=== PATIENT | male | born 1985 | race Caucasian/White ===

== ENCOUNTER 2016-11-14 16:40 | Emergency (ER) | payer MEDICAID ==
[2016-11-14] MEDS ORDERED: Sodium Chloride 0.9% 10 ML Syringe FLUSH PRN (17:07)
[2016-11-14] MEDS ORDERED: Ondansetron 4 MG/2 ML SDV IVPUSH ONE (17:07)
[2016-11-14] MEDS ORDERED: HYDROmorphone 1 MG/ML Syringe IVPUSH ONE ×2 (17:07→19:04)
[2016-11-14] MEDS ORDERED: Sodium Chloride 0.9% 1,000 ML IV ONE (17:07)
--- NOTE | 2016-11-14 17:14 | EDM.PDOC ---
ED HPI GENERAL MEDICAL PROBLEM - General Chief Complaint: Chest Pain Stated Complaint: CHEST PAIN Time Seen by Provider: 11/14/16 17:00 Source of Information: Reports: Patient History Limitations: Reports: No Limitations - History of Present Illness INITIAL COMMENTS - FREE TEXT/NARRATIVE: 31-year-old male presents for evaluation and treatment of chest pain and shortness of breath. Patient reports that around 8 or 9 this morning he woke from sleep with substernal chest pain that radiated into his right arm. He states that he has tried to lay down throughout the day but the pain has steadily worsened. He states that at its worst it is an 8 out of 10. He states is located in his mid chest and radiates into his back and his right chest. Describes this as an internal pain. No radiation into his neck. States he was coughing earlier. No blood in his sputum. He reports associated symptoms of dizziness, diaphoresis and nausea. He denies any syncope or vomiting. He also reports some abdominal pain in the right upper abdomen. He describes this as a mild pain. Reports pain in his legs but states she always has pain in his legs. Patient is currently on Coumadin and has an IVC filter in place. He reports he was supposed the IVC filter on July. He had this placed after having a PE in February 2015. This was treated at [facility] in [place]. He reports he has been taking his Coumadin as prescribed. He is unaware of any coagulation disorders such as protein C or protein S deficiency. States his symptoms today feel similar to when he had the PE. Reports he smokes about 1 cigarette a day. This is down from 1-2 packs a day. Reports he has substantially decreased his smoking since having a PE. No recent long car rides or airplane rides. Mid-Sternal Chest Pain Score (Numeric/FACES): 7 - Related Data Allergies Allergy/AdvReac Type Severity Reaction Status Date / Time diphenhydramine Allergy Rash Verified 02/27/16 18:51 [From Benadryl] ketorolac [From Toradol] Allergy Anxiety Verified 02/27/16 18:51 Home Meds: Home Meds Divalproex Sodium [Depakote] 250 mg PO TID 02/27/16 [History] Divalproex Sodium [Depakote] 500 mg PO TID 02/27/16 [History] FLUoxetine [PROzac] 3 tab PO DAILY 02/27/16 [History] Furosemide [Lasix] 20 mg PO DAILY 02/27/16 [History] Gabapentin [Neurontin] 600 mg PO QID 02/27/16 [History] LORazepam [Ativan] 1 mg PO TID #18 tablet 02/27/16 [Rx] Ondansetron [Zofran ODT] 4 mg PO Q4H PRN 02/27/16 [History] Pantoprazole [Protonix] 40 mg PO ACBREAKFAST 02/27/16 [History] Prazosin HCl [Prazosin] 2 mg PO BEDTIME 02/27/16 [History] Prazosin [Minpress] 1 mg PO BEDTIME 02/27/16 [History] QUEtiapine [SEROquel] 150 mg PO BEDTIME 02/27/16 [History] Warfarin [Coumadin] 7.5 mg PO DAILY 02/27/16 [History] cloNIDine [Catapres] 0.1 mg PO DAILY #10 tablet 02/27/16 [Rx] hydrOXYzine Pamoate [Hydroxyzine Pamoate] 1 tab PO QID PRN 02/27/16 [History] traZODone 50 mg PO BEDTIME 02/27/16 [History] Amitriptyline HCl 150 mg PO BEDTIME 11/14/16 [History] Divalproex Sodium [Depakote] 500 mg PO BEDTIME 11/14/16 [History] FLUoxetine [PROzac] 3 tab PO DAILY 11/14/16 [History] Nicotine [Nicotine Patch] 1 patch TD DAILY 11/14/16 [History] Pantoprazole Sodium [Protonix] 40 mg PO DAILY 11/14/16 [History] Prazosin HCl [Prazosin] 5 mg PO BEDTIME 11/14/16 [History] Topiramate [Topamax] 100 mg PO BEDTIME 11/14/16 [History] Warfarin [Coumadin] 5 mg PO DAILY 11/14/16 [History] traMADol [Ultram] 50 mg PO ONETIME #3 tablet 11/14/16 [Rx] Past Medical History Respiratory History: Reports: PE Gastrointestinal History: Reports: GERD Psychiatric History: Reports: Anxiety, Depression, PTSD - Past Surgical History Respiratory Surgical History: Reports: Pulmonary Vein Stent GI Surgical History: Reports: Cholecystectomy Social & Family History - Tobacco Use Smoking Status *Q: Current Every Day Smoker Years of Tobacco use: 5 Packs/Tins Daily: 0.3 - Caffeine Use Caffeine Use: Reports: Coffee - Recreational Drug Use Recreational Drug Use: Yes Drug Use in Last 12 Months: No ED ROS GENERAL - Review of Systems Review Of Systems: See Below Constitutional: Reports: Malaise, Diaphoresis Respiratory: Reports: Shortness of Breath, Cough. Denies: Hemoptysis Cardiovascular: Reports: Chest Pain (radiates to back and right arm) GI/Abdominal: Reports: Abdominal Pain ("slight"), Nausea. Denies: Vomiting Musculoskeletal: Reports: Back Pain Neurological: Reports: Dizziness. Denies: Syncope ED EXAM, GENERAL - Physical Exam Exam: See Below Exam Limited By: No Limitations General Appearance: Alert, WD/WN, Anxious, Mild Distress, Obese Throat/Mouth: Normal Inspection, Normal Voice, No Airway Compromise Respiratory/Chest: No Respiratory Distress, Lungs Clear, Normal Breath Sounds Cardiovascular: Normal Peripheral Pulses, No Murmur, Tachycardia Peripheral Pulses: 2+: Radial (L), Radial (R) GI/Abdominal: Normal Bowel Sounds, Soft, Non-Tender Extremities: Normal Inspection Neurological: Alert, Oriented, Normal Cognition Psychiatric: Normal Affect, Normal Mood Skin Exam: Cool, Diaphoretic EKG INTERPRETATION EKG Date: 11/14/16 Time: 16:50 Rhythm: NSR Rate (Beats/Min): 105 Stevenson: Normal P-Wave: Present QRS: Normal ST-T: Normal QT: Normal Comparison: NA - No Prior EKG EKG Interpretation Comments: Sinus tachycardia at 105 bpm. No acute changes. Reviewed by myself and Dr. Eddy. Course - Vital Signs Last Recorded V/S: Last Vital Signs Temp 36.4 C 11/14/16 16:47 Pulse 100 11/14/16 21:38 Resp 20 11/14/16 21:38 BP 129/72 11/14/16 21:38 Pulse Ox 97 11/14/16 21:38 - Orders/Labs/Meds Labs: Laboratory Tests 11/14/16 11/14/16 11/14/16 Range/Units 18:25 18:25 18:25 WBC 8.55 (4.23-9.07) K/mm3 RBC 4.74 (4.63-6.08) M/mm3 Hgb 13.5 L (13.7-17.5) gm/L Hct 41.5 (40.1-51.0) % MCV 87.6 (79.0-92.2) fl MCH 28.5 (25.7-32.2) pg MCHC 32.5 (32.2-35.5) g/dl RDW Std Deviation 46.2 H (35.1-43.9) fL Plt Count 216 (163-337) K/mm3 MPV 11.7 (9.4-12.3) fl Neutrophils % (Manual) 55 (40-60) % Band Neutrophils % 0 (0-10) % Lymphocytes % (Manual) 33 (20-40) % Atypical Lymphs % 0 % Monocytes % (Manual) 4 (2-10) % Eosinophils % (Manual) 4 (0.8-7.0) % Basophils % (Manual) 4 H (0.2-1.2) Platelet Estimate Adequate RBC Morph Comment Normal PT 24.4 H (8.0-13.0) SECONDS INR 2.13 APTT 35 (22-36) SECONDS D-Dimer, Quantitative 0.65 H (0.19-0.59) mg/L Sodium 139 (136-145) mEq/L Potassium 4.2 (3.5-5.1) mEq/L Chloride 106 (98-107) mEq/L Carbon Dioxide 22 (21-32) mEq/L Anion Gap 15.2 H (5-15) BUN 23 H (7-18) mg/dL Creatinine 1.1 (0.7-1.3) mg/dL Est Cr Clr Drug Dosing 104.84 mL/min Estimated GFR (MDRD) > 60 (>60) mL/min BUN/Creatinine Ratio 20.9 H (14-18) Glucose 87 (74-106) mg/dL Calcium 8.5 (8.5-10.1) mg/dL Total Bilirubin 0.2 (0.2-1.0) mg/dL AST 19 (15-37) U/L ALT 43 (16-63) U/L Alkaline Phosphatase 104 (46-116) U/L CK-MB (CK-2) 0.5 (0-3.6) ng/ml Troponin I < 0.017 (0.00-0.056) ng/mL C-Reactive Protein < 0.2 (<1.0) mg/dL Total Protein 7.3 (6.4-8.2) g/dl Albumin 3.5 (3.4-5.0) g/dl Globulin 3.8 gm/dL Albumin/Globulin Ratio 0.9 L (1-2) Lipase 148 (73-393) U/L Urine Opiates Screen (NEGATIVE) Ur Buprenorphine Scrn (NEGATIVE) Ur Oxycodone Screen (NEGATIVE) Urine Methadone Screen (NEGATIVE) Ur Propoxyphene Screen (NEGATIVE) Ur Barbiturates Screen (NEGATIVE) Ur Tricyclics Screen (NEGATIVE) Ur Phencyclidine Scrn (NEGATIVE) Ur Amphetamine Screen (NEGATIVE) U Methamphetamines Scrn (NEGATIVE) U Benzodiazepines Scrn (NEGATIVE) U Cocaine Metab Screen (NEGATIVE) U Marijuana (THC) Screen (NEGATIVE) Ethyl Alcohol 0.00 (0.00) gm% 11/14/16 Range/Units 20:45 WBC (4.23-9.07) K/mm3 RBC (4.63-6.08) M/mm3 Hgb (13.7-17.5) gm/L Hct (40.1-51.0) % MCV (79.0-92.2) fl MCH (25.7-32.2) pg MCHC (32.2-35.5) g/dl RDW Std Deviation (35.1-43.9) fL Plt Count (163-337) K/mm3 MPV (9.4-12.3) fl Neutrophils % (Manual) (40-60) % Band Neutrophils % (0-10) % Lymphocytes % (Manual) (20-40) % Atypical Lymphs % % Monocytes % (Manual) (2-10) % Eosinophils % (Manual) (0.8-7.0) % Basophils % (Manual) (0.2-1.2) Platelet Estimate RBC Morph Comment PT (8.0-13.0) SECONDS INR APTT (22-36) SECONDS D-Dimer, Quantitative (0.19-0.59) mg/L Sodium (136-145) mEq/L Potassium (3.5-5.1) mEq/L Chloride (98-107) mEq/L Carbon Dioxide (21-32) mEq/L Anion Gap (5-15) BUN (7-18) mg/dL Creatinine (0.7-1.3) mg/dL Est Cr Clr Drug Dosing mL/min Estimated GFR (MDRD) (>60) mL/min BUN/Creatinine Ratio (14-18) Glucose (74-106) mg/dL Calcium (8.5-10.1) mg/dL Total Bilirubin (0.2-1.0) mg/dL AST (15-37) U/L ALT (16-63) U/L Alkaline Phosphatase (46-116) U/L CK-MB (CK-2) (0-3.6) ng/ml Troponin I (0.00-0.056) ng/mL C-Reactive Protein (<1.0) mg/dL Total Protein (6.4-8.2) g/dl Albumin (3.4-5.0) g/dl Globulin gm/dL Albumin/Globulin Ratio (1-2) Lipase (73-393) U/L Urine Opiates Screen Presumptive positive H (NEGATIVE) Ur Buprenorphine Scrn Negative (NEGATIVE) Ur Oxycodone Screen Negative (NEGATIVE) Urine Methadone Screen Negative (NEGATIVE) Ur Propoxyphene Screen Negative (NEGATIVE) Ur Barbiturates Screen Negative (NEGATIVE) Ur Tricyclics Screen Presumptive positive H (NEGATIVE) Ur Phencyclidine Scrn Negative (NEGATIVE) Ur Amphetamine Screen Negative (NEGATIVE) U Methamphetamines Scrn Negative (NEGATIVE) U Benzodiazepines Scrn Presumptive positive H (NEGATIVE) U Cocaine Metab Screen Negative (NEGATIVE) U Marijuana (THC) Screen Negative (NEGATIVE) Ethyl Alcohol (0.00) gm% Meds: Medications Discontinued Medications Generic Name Dose Route Start Last Admin Trade Name Freq PRN Reason Stop Dose Admin Hydromorphone HCl 1 mg 11/14/16 17:07 11/14/16 18:11 Dilaudid IVPUSH 11/14/16 17:08 1 mg ONETIME ONE Administration Hydromorphone HCl 1 mg 11/14/16 19:04 11/14/16 19:14 Dilaudid IVPUSH 11/14/16 19:05 1 mg ONETIME ONE Administration Sodium Chloride 1,000 mls @ 100 mls/hr 11/14/16 17:07 11/14/16 18:09 Normal Saline IV 11/15/16 03:06 100 mls/hr ONETIME ONE Administration Sodium Chloride 100 mls @ 60 mls/hr 11/14/16 18:00 11/14/16 18:05 Normal Saline IV 60 mls/hr ASDIRECTED MARYCARMEN Administration Iopamidol 100 ml 11/14/16 17:46 11/14/16 18:05 Isovue-370 (76%) IVPUSH 11/14/16 17:47 100 ml ONETIME ONE Administration Iopamidol 50 ml 11/14/16 17:46 11/14/16 18:05 Isovue-370 (76%) IVPUSH 11/14/16 17:47 50 ml ONETIME ONE Administration Lorazepam 1 mg 11/14/16 20:22 11/14/16 20:33 Ativan IVPUSH 11/14/16 20:23 1 mg ONETIME ONE Administration Ondansetron HCl 4 mg 11/14/16 17:07 11/14/16 18:10 Zofran IVPUSH 11/14/16 17:08 4 mg ONETIME ONE Administration Sodium Chloride 10 ml 11/14/16 17:07 11/14/16 18:12 Saline Flush FLUSH 10 ml ASDIRECTED PRN Administration Keep Vein Open Sodium Chloride 10 ml 11/14/16 17:46 11/14/16 18:05 Saline Flush FLUSH 11/14/16 17:47 10 ml ONETIME ONE Administration Tramadol HCl Confirm 11/14/16 21:30 Ultram Administered 11/14/16 21:31 Dose 150 mg .ROUTE .[facility] ONE - Radiology Interpretation Free Text/Narrative:: CT pulmonary angiogram impression per Viread no pulmonary embolus. Normal chest CTA. CT of the abdomen and pelvis with IV contrast 1. IVC filter in place. 2. Enlarged liver with no focal liver mass. 3. No acute abnormality in the abdomen or pelvis. CT Results Date: 11/14/16 - Re-Assessments/Exams Free Text/Narrative Re-Assessment/Exam: 11/14/16 17:21 Dilaudid ordered for pain. Allergies to benadryl and toradol. Plan to CT the chest, abdomen and pelvis to rule out PE, IVC migration, dissection, aneurism. 11/14/16 19:04 reports worsening pain. Ordered additional 1mg IV dilaudid. Awaiting CT report and remaining labs. drug screen and etoh added onto labs. Patient reports he is living at the [facility]. He is elusive about this and would not further elaborate. 11/14/16 20:22 Labs returned. wbc is 8.55, hgb is 13.5 and plts are 216 sodium is 139, potassium is 4.2, chloride is 106. anion gap is 15.2. creatinine is 1.1. gluclose is 87. d dimer is slightly elevated at 0.65 trop is within nomrmal limits at <0.017 CKMB is within normal limits at 0.5 CRP is within normal limits at <0.2 lipase is within normal limits at 148 PT is 24.4, INR is 2.13 PTT is 35 alcohol is 0 drug screen is + for opiates, benzos and tricyclics. I reviewed the labs, ekg, and imaging with the patient. Possibilities for chest pain include anxiety, reflux, costoconditis. I ordered ativan IV for anxiety. I believe his anxiety is likely the cause of the tachycardia. Plan will be to discharge home. He is requesting something for pain and to help with sleep. I searched him on the [place] drug registry. I will prescribe him a few tramadol. He has taken these safely in the past. 10 prescriptions from 5 prescibers for controlled substances within the last year. All RX either clonazepam or tramadol. Last clonazepam RX 11-04-16 0.5mg tabs #12. Last tramadol 50mg tabs 16 #180 Discharge instructions as documented. 11/14/16 21:49 Ciales improved after ativan. Informed nursing staff he has an "allergy" to tramadol. States it makes him uneasy. Given the etiology for his pain tonight was not definitively identified , however multiple serious causes of chest pain were ruled out, I do not feel he should require anything stronger for pain tonight. He was made aware of this and decided to take the tramadol prescription anyways. Will discharge home. Departure - Departure Time of Disposition: 21:17 Disposition: Home, Self-Care 01 Condition: Good Clinical Impression: Atypical chest pain Prescriptions: traMADol [Ultram] 50 mg PO ONETIME #3 tablet Instructions: Nonspecific Chest Pain Referrals: Ev Bradley MD [Primary Care Provider] - Forms: ED Department Discharge Additional Instructions: Go home and rest. Follow up with your family practice provider this week. If you need one in [place], recommend Dr. Bhatt. Please call [phone] Bhatt. Tramadol 1 tab at hour sleep for pain. Please return to the ER if your symptoms change or worsen.
[2016-11-14] MEDS ORDERED: Sodium Chloride 0.9% 10 ML Syringe FLUSH ONE (17:46)
[2016-11-14] MEDS ORDERED: Iopamidol 755 MG/ML 50 ML Bottle IVPUSH ONE (17:46)
[2016-11-14] MEDS ORDERED: Iopamidol 755 Mg/ML 100 ML Bottle IVPUSH ONE (17:46)
[2016-11-14] MEDS ORDERED: Sodium Chloride 0.9% 100 ML IV SCH (18:00)
[2016-11-14] MEDS ORDERED: LORazepam 2 MG/ML MDV IVPUSH ONE (20:22)
[2016-11-14] MEDS ORDERED: traMADol 50 MG Tab ONE (21:30)
[2016-11-14 23:08] VITALS: BP 129/72
--- NOTE | 2016-11-15 07:09 | CT ---
CT chest Technique: Multiple axial sections were obtained from above the lung apices inferiorly through the lung bases. Intravenous contrast was utilized. Findings: Aorta shows no aneurysmal dilatation. No dissection is seen. Visualized portions of the pulmonary artery show no findings of pulmonary embolism. Mediastinum and hilar regions show no adenopathy or mass. No pericardial effusions are seen. Lungs are clear. No pleural effusions are identified. Bone window settings were reviewed which appear within normal limits for the patient's age. Impression: 1. Nothing acute is appreciated on CT study of the chest. Diagnostic code #1 I agree with preliminary report issued by [facility] ([facility] report finalized on 11/14/16, 7:45 PM Central Time) CT abdomen and pelvis Technique: Multiple axial sections were obtained from above the dome of the diaphragm inferiorly through the pubic symphysis. Intravenous contrast was utilized. No oral contrast has been given. Delayed images were also obtained through the bladder. Findings: Liver shows no focal parenchymal abnormality. Spleen appears within normal limits. Surgical clips are identified from prior cholecystectomy. Adrenal glands show no nodule. Minimal cyst noted within the mid right kidney measuring 4 mm. Kidneys otherwise appear normal. Inferior vena cava filter is seen. Pancreas appears within normal limits. Aortic arch appears unremarkable. No retroperitoneal adenopathy or mesenteric abnormalities are seen. Appendix is seen and appears normal. Delayed images show contrast within the bladder. Bone window settings were reviewed which appear within normal limits for the patient's age. Impression: 1. Inferior vena cava filter noted. 2. No acute abnormality identified on CT study of the abdomen and pelvis. Diagnostic code #2 I agree with preliminary report issued by [facility] ([facility] report finalized on 11/14/16, 7:45 PM Central Time)
== END 2016-11-14 21:39 | disposition home or self-care (01) ==
LOC: JD.ED 16:40 → MERGE 16:40 → JD.ED 21:39
DX: R07.89 Other chest pain (principal); K21.9 Gastro-esophageal reflux disease without esophagitis; F41.9 Anxiety disorder, unspecified; F32.9 Major depressive disorder, single episode, unspecified; F17.210 Nicotine dependence, cigarettes, uncomplicated; Z79.01 Long term (current) use of anticoagulants; Z79.899 Other long term (current) drug therapy; Z88.6 Allergy status to analgesic agent; Z88.8 Allergy status to other drugs, medicaments and biological substances
CPT/HCPCS: 36415; 71260; 74177; 80053; 80306; 82553; 83690; 84484; 85025; 85379; 85610; 85730; 86140; 93005; 96361; 96374; 96375; 99284; G0480; J1170; J2060; J2405; J7030; J7040; J7050; Q9967

== ENCOUNTER 2016-11-23 16:50 | Emergency (ER) | payer MEDICAID ==
[2016-11-23 17:03] VITALS: BP 141/83
[2016-11-23] MEDS ORDERED: Sodium Chloride 0.9% 10 ML Syringe FLUSH PRN ×2 (17:25→20:54)
[2016-11-23] MEDS ORDERED: LORazepam 2 MG/ML MDV IVPUSH ONE (17:27)
--- NOTE | 2016-11-23 17:32 | EDM.PDOC ---
ED HPI GENERAL MEDICAL PROBLEM - General Chief Complaint: Cardiovascular Problem Stated Complaint: BOTH LEGS SWOLLEN Time Seen by Provider: 11/23/16 17:11 Source of Information: Reports: Patient History Limitations: Reports: No Limitations - History of Present Illness INITIAL COMMENTS - FREE TEXT/NARRATIVE: Patient is a 31-year-old male with a history of DVT/PE, inferior vena cava filter, and currently on Coumadin who presents to the ED complaining of swelling to his left lower leg with pain. Patient has chest pain chronically with worsening symptoms today along with some shortness of breath. Patient is a resident of our [facility] for the past 2 weeks. During therapy with other members there was an argument and the patient got upset. Patient has been sober from alcohol for 9 months. States the filter was supposed to be removed in [place] this past July but due to financial reasons he was unable to get there. Patient is concerned he has a DVT. Again chest pain is chronic but has worsened with being agitated. Unknown what his last INR was. He continues take Coumadin on a regular basis. He is on multiple medications for multiple psychiatric illnesses. He's taken all his home medications as prescribed. Denies any nausea/ vomiting, fever/chills, abdominal pain, dysuria, numbness or tingling, presyncopal/syncopal episodes, dizziness, or any additional complaints. Left Leg Pain Score (Numeric/FACES): 7 Chest Pain Score (Numeric/FACES): 6 - Related Data Allergies Allergy/AdvReac Type Severity Reaction Status Date / Time diphenhydramine Allergy Rash Verified 11/23/16 17:03 [From Benadryl] ketorolac [From Toradol] Allergy Anxiety Verified 11/23/16 17:03 Home Meds: Home Meds Divalproex Sodium [Depakote] 250 mg PO TID 02/27/16 [History] Divalproex Sodium [Depakote] 500 mg PO TID 02/27/16 [History] FLUoxetine [PROzac] 3 tab PO DAILY 02/27/16 [History] Furosemide [Lasix] 20 mg PO DAILY 02/27/16 [History] Gabapentin [Neurontin] 600 mg PO QID 02/27/16 [History] LORazepam [Ativan] 1 mg PO TID #18 tablet 02/27/16 [Rx] Ondansetron [Zofran ODT] 4 mg PO Q4H PRN 02/27/16 [History] Pantoprazole [Protonix] 40 mg PO ACBREAKFAST 02/27/16 [History] Prazosin HCl [Prazosin] 2 mg PO BEDTIME 02/27/16 [History] Prazosin [Minpress] 1 mg PO BEDTIME 02/27/16 [History] QUEtiapine [SEROquel] 150 mg PO BEDTIME 02/27/16 [History] Warfarin [Coumadin] 7.5 mg PO DAILY 02/27/16 [History] cloNIDine [Catapres] 0.1 mg PO DAILY #10 tablet 02/27/16 [Rx] hydrOXYzine Pamoate [Hydroxyzine Pamoate] 1 tab PO QID PRN 02/27/16 [History] traZODone 50 mg PO BEDTIME 02/27/16 [History] Amitriptyline HCl 150 mg PO BEDTIME 11/14/16 [History] Divalproex Sodium [Depakote] 500 mg PO BEDTIME 11/14/16 [History] FLUoxetine [PROzac] 3 tab PO DAILY 11/14/16 [History] Nicotine [Nicotine Patch] 1 patch TD DAILY 11/14/16 [History] Pantoprazole Sodium [Protonix] 40 mg PO DAILY 11/14/16 [History] Prazosin HCl [Prazosin] 5 mg PO BEDTIME 11/14/16 [History] Topiramate [Topamax] 100 mg PO BEDTIME 11/14/16 [History] Warfarin [Coumadin] 5 mg PO DAILY 11/14/16 [History] traMADol [Ultram] 50 mg PO ONETIME #3 tablet 11/14/16 [Rx] Acetaminophen/HYDROcodone [[place] 325-5 MG] 1 tab PO Q6H PRN #8 tablet 11/23/16 [ Rx] Cephalexin [Keflex] 500 mg PO Q6HR #40 cap 11/23/16 [Rx] Past Medical History HEENT History: Reports: Impaired Vision Other HEENT History: wears corrective lenses Cardiovascular History: Reports: Blood Clots/VTE/DVT Respiratory History: Reports: PE, Other (See Below) Other Respiratory History: CVT filter in rightlung Gastrointestinal History: Reports: GERD Neurological History: Reports: Seizure, Other (See Below) Other Neuro History: currently off seizure medications Psychiatric History: Reports: Addiction, ADD, Anxiety, Depression, PTSD Hematologic History: Reports: Anticoagulation Therapy - Past Surgical History HEENT Surgical History: Reports: Oral Surgery Respiratory Surgical History: Reports: Pulmonary Vein Stent GI Surgical History: Reports: Cholecystectomy Neurological Surgical History: Reports: None Social & Family History - Tobacco Use Smoking Status *Q: Former Smoker Years of Tobacco use: 5 Packs/Tins Daily: 0.3 Used Tobacco, but Quit: Yes Month Tobacco Last Used: 1 Second Hand Smoke Exposure: No - Caffeine Use Caffeine Use: Reports: Energy Drinks - Recreational Drug Use Recreational Drug Use: No Drug Use in Last 12 Months: No ED ROS GENERAL - Review of Systems Review Of Systems: ROS reveals no pertinent complaints other than HPI. ED EXAM, GENERAL - Physical Exam Exam: See Below Exam Limited By: No Limitations General Appearance: Alert, WD/WN, Anxious Ears: Hearing Grossly Normal Nose: Normal Inspection Throat/Mouth: Normal Voice, No Airway Compromise Neck: Normal Inspection, Supple, Non-Tender, Full Range of Motion. No: Lymphadenopathy (L), Lymphadenopathy (R) Respiratory/Chest: No Respiratory Distress, Lungs Clear, Normal Breath Sounds, No Accessory Muscle Use, Chest Non-Tender Cardiovascular: Normal Peripheral Pulses, No JVD, No Murmur, Tachycardia Peripheral Pulses: 2+: Radial (L), Radial (R), Posterior Tibial (L), Posterior Tibial (R) GI/Abdominal: Normal Bowel Sounds, Soft, Non-Tender, No Organomegaly, No Distention Back Exam: Normal Inspection Extremities: Other (Swelling noted to the left calf with mild increase in redness noted. Pain with palpation along the inferior border of the calf. Multiple superficial abrasions.) Neurological: Alert, Oriented, CN II-XII Intact, Normal Cognition, No Motor/ Sensory Deficits Psychiatric: Normal Affect, Normal Mood Skin Exam: Warm, Dry, Intact, Normal Color, No Rash Course - Vital Signs Last Recorded V/S: Last Vital Signs Temp 97.3 F 11/23/16 16:59 Pulse 103 H 11/23/16 16:59 Resp 19 11/23/16 16:59 BP 141/83 H 11/23/16 16:59 Pulse Ox 97 11/23/16 16:59 - Orders/Labs/Meds Labs: Laboratory Tests 07/31/17 07/31/17 07/31/17 Range/Units 17:10 17:10 17:10 WBC 9.36 H (4.23-9.07) K/mm3 RBC 4.22 L (4.63-6.08) M/mm3 Hgb 12.1 L (13.7-17.5) gm/L Hct 37.1 L (40.1-51.0) % MCV 87.9 (79.0-92.2) fl MCH 28.7 (25.7-32.2) pg MCHC 32.6 (32.2-35.5) g/dl RDW Std Deviation 47.1 H (35.1-43.9) fL Plt Count 221 (163-337) K/mm3 MPV 12.1 (9.4-12.3) fl Neut % (Auto) 66.3 (34.0-67.9) % Lymph % (Auto) 23.4 (21.8-53.1) % Victoria % (Auto) 6.5 (5.3-12.2) % Eos % (Auto) 3.3 (0.8-7.0) Baso % (Auto) 0.3 (0.1-1.2) % Neut # (Auto) 6.20 H (1.78-5.38) K/mm3 Lymph # (Auto) 2.19 (1.32-3.57) K/mm3 Victoria # (Auto) 0.61 (0.30-0.82) K/mm3 Eos # (Auto) 0.31 (0.04-0.54) K/mm3 Baso # (Auto) 0.03 (0.01-0.08) K/mm3 PT 26.3 H (8.0-13.0) SECONDS INR 2.29 Sodium 142 (136-145) mEq/L Potassium 3.2 L (3.5-5.1) mEq/L Chloride 107 (98-107) mEq/L Carbon Dioxide 23 (21-32) mEq/L Anion Gap 15.2 H (5-15) BUN 18 (7-18) mg/dL Creatinine 1.4 H (0.7-1.3) mg/dL Est Cr Clr Drug Dosing 82.49 mL/min Estimated GFR (MDRD) 58 (>60) mL/min BUN/Creatinine Ratio 12.9 L (14-18) Glucose 109 H (74-106) mg/dL Calcium 9.2 (8.5-10.1) mg/dL Total Bilirubin 0.3 (0.2-1.0) mg/dL AST 41 H (15-37) U/L ALT 51 (16-63) U/L Alkaline Phosphatase 97 (46-116) U/L Troponin I (0.00-0.056) ng/mL Total Protein 7.2 (6.4-8.2) g/dl Albumin 3.8 (3.4-5.0) g/dl Globulin 3.4 gm/dL Albumin/Globulin Ratio 1.1 (1-2) 11/23/16 Range/Units 20:55 WBC (4.23-9.07) K/mm3 RBC (4.63-6.08) M/mm3 Hgb (13.7-17.5) gm/L Hct (40.1-51.0) % MCV (79.0-92.2) fl MCH (25.7-32.2) pg MCHC (32.2-35.5) g/dl RDW Std Deviation (35.1-43.9) fL Plt Count (163-337) K/mm3 MPV (9.4-12.3) fl Neut % (Auto) (34.0-67.9) % Lymph % (Auto) (21.8-53.1) % Victoria % (Auto) (5.3-12.2) % Eos % (Auto) (0.8-7.0) Baso % (Auto) (0.1-1.2) % Neut # (Auto) (1.78-5.38) K/mm3 Lymph # (Auto) (1.32-3.57) K/mm3 Victoria # (Auto) (0.30-0.82) K/mm3 Eos # (Auto) (0.04-0.54) K/mm3 Baso # (Auto) (0.01-0.08) K/mm3 PT (8.0-13.0) SECONDS INR Sodium (136-145) mEq/L Potassium (3.5-5.1) mEq/L Chloride (98-107) mEq/L Carbon Dioxide (21-32) mEq/L Anion Gap (5-15) BUN (7-18) mg/dL Creatinine (0.7-1.3) mg/dL Est Cr Clr Drug Dosing mL/min Estimated GFR (MDRD) (>60) mL/min BUN/Creatinine Ratio (14-18) Glucose (74-106) mg/dL Calcium (8.5-10.1) mg/dL Total Bilirubin (0.2-1.0) mg/dL AST (15-37) U/L ALT (16-63) U/L Alkaline Phosphatase (46-116) U/L Troponin I < 0.017 (0.00-0.056) ng/mL Total Protein (6.4-8.2) g/dl Albumin (3.4-5.0) g/dl Globulin gm/dL Albumin/Globulin Ratio (1-2) Meds: Medications Discontinued Medications Generic Name Dose Route Start Last Admin Trade Name Freq PRN Reason Stop Dose Admin Cephalexin 500 mg 11/23/16 22:00 11/23/16 22:38 Keflex PO 11/23/16 22:01 500 mg ONETIME ONE Administration Hydromorphone HCl 1 mg 11/23/16 18:41 11/23/16 18:49 Dilaudid IVPUSH 11/23/16 18:42 1 mg ONETIME ONE Administration Hydromorphone HCl 0.25 mg 11/23/16 21:46 11/23/16 21:53 Dilaudid IVPUSH 11/23/16 21:47 0.25 mg ONETIME ONE Administration Sodium Chloride 1,000 mls @ 999 mls/hr 11/23/16 20:00 11/23/16 20:11 Normal Saline IV 999 mls/hr ASDIRECTED MARYCARMEN Administration Sodium Chloride 100 mls @ 65 mls/hr 11/23/16 21:00 Normal Saline IV ASDIRECTED MARYCARMEN Iopamidol 100 ml 11/23/16 20:54 Isovue-370 (76%) IVPUSH 11/23/16 20:55 ONETIME ONE Iopamidol 50 ml 11/23/16 20:54 Isovue-370 (76%) IVPUSH 11/23/16 20:55 ONETIME ONE Lorazepam 1 mg 11/23/16 17:27 11/23/16 17:45 Ativan IVPUSH 11/23/16 17:28 1 mg ONETIME ONE Administration Sodium Chloride 10 ml 11/23/16 17:25 11/23/16 17:45 Saline Flush FLUSH 10 ml ASDIRECTED PRN Administration Keep Vein Open Sodium Chloride 10 ml 11/23/16 20:54 Saline Flush FLUSH ONETIME PRN IV FLUSH - Re-Assessments/Exams Free Text/Narrative Re-Assessment/Exam: Peripheral IV ordered with Ativan 1 mg IVP. Patient is quite anxious. Initial labs and studies include CBC, chem 14, PTT/INR, EKG, chest x-ray one view, and VL duplex of left lower leg. Will hold off on obtaining CTA of the chest until INR results and VL duplex are back. EKG revealed: Sinus tachycardia with a rate of 102 with conduction delay. Abnormal EKG. No acute ST changes noted. Negative S1 Q3 T3. Chest x-ray revealed: No acute findings. Reviewed with Dr. Rosado. Final interpretation pending. Labs reveal:Labs reviewed: White blood cell count 9.36, hemoglobin 12.1, no neutrophilia present. INR 2.29 which is therapeutic. Sodium 142, potassium 3.2, creatinine 1.4, and glucose 109. Ultrasound revealed: Partially occluding thrombus in the superficial femoral vein inferiorly through the deep veins of the left lower extremity. Most of the clot appears to be chronic but I do believe that there is a mild amount of acute thrombus present. Subcutaneous edema is seen within the left lower extremity. 11/23/16 18:41 Patient complaining of chest pain. Anxiety level has not subsided with Ativan. Ordered Dilaudid 1 mg IVP. 11/23/16 20:07 Creatinine is 1.4. Ordered and is 999 ml/hr. Due to findings on ultrasound of acute thrombus present. Will order CT of the chest PE protocol. Discussed this with Dr. Mills he agrees but also suggest obtaining CT the abdomen to delineate location of IVC filter. It was neisha our attention CT of the chest, abdomen, and pelvis obtained November 14, 2016 indicated inferior vena cava filter noted. No acute abnormality identified on CT study of the abdomen and pelvis. Nothing acute is appreciated on CT study of the chest. Patient did not inform he was seen in the E.D. this date. CT of the abdomen and pelvis cancelled. 11/23/16 21:53 CT the chest per PE protocol impression: Patchy areas of groundglass opacification and the right and left upper lobes and lesser to the extent the right lower lobe. Findings could suggest pneumonitis. No evidence of pulmonary embolus. Mild cardiomegaly. Incidental/nonacute findings are described above. 11/23/16 22:02 Ordered Keflex 500 mg by mouth. Patient has some small superficial abrasions to the left ankle may be early onset of cellulitis. Will discharge patient home with instructions as documented. Departure - Departure Time of Disposition: 22:03 Disposition: Home, Self-Care 01 Condition: Good Clinical Impression: DVT of axillary vein, acute left, DVT of axillary vein, chronic left Lower leg abrasion Qualifiers: Encounter type: initial encounter Laterality: left Qualified Code(s): S80.812A - Abrasion, left lower leg, initial encounter Prescriptions: Cephalexin [Keflex] 500 mg PO Q6HR #40 cap Acetaminophen/HYDROcodone [[place] 325-5 MG] 1 tab PO Q6H PRN #8 tablet PRN Reason: Pain (Severe 7-10) Instructions: Abrasion, [id number], Deep Vein Thrombosis Referrals: Ev Bradley MD [Primary Care Provider] - Forms: ED Department Discharge Additional Instructions: As discussed ultrasound of the left lower leg did reveal acute and chronic clot present. Unsure if this is the cause of your current complaint. You have some small abrasions to the lower leg concerning for possible cellulitis. Thus we'll treat the pain with [place] one tab every 6 hours as needed. Continue to taking Tylenol and ibuprofen in alternating fashion. Push the fluids. In addition with heavy take Keflex 500 mg 4 times a day for 10 days. Follow-up with your PCP this week for the first part of next week to ensure symptoms are improving. Return to ED for any new or worsening symptoms. No driving this evening or while taking the [place].
[2016-11-23] MEDS ORDERED: HYDROmorphone 1 MG/ML Syringe IVPUSH ONE (18:41)
--- NOTE | 2016-11-23 19:17 | US ---
Left lower extremity deep venous ultrasound: Duplex and color flow imaging was obtained and left common femoral, proximal greater saphenous, superficial femoral, popliteal, posterior tibial and peroneal veins. Right common femoral vein was also evaluated. Comparison: No previous study. Findings: Subcutaneous edema is noted within the left lower extremity. Partial occluding thrombus is identified from the proximal superficial femoral vein inferiorly throughout the other deep veins of the lower left extremity. This is believed to represent a combination of chronic and acute clot. Greater saphenous vein is patent. Right common femoral vein is patent. Impression: 1. Partially occluding thrombus in the superficial femoral vein inferiorly through the deep veins of the left lower extremity. Most of the clot appears to be chronic but I do believe that there is a mild amount of acute thrombus present. 2. Subcutaneous edema is seen within the left lower extremity. Diagnostic code #5
[2016-11-23] MEDS ORDERED: Sodium Chloride 0.9% 1,000 ML IV SCH (20:00)
[2016-11-23] MEDS ORDERED: Iopamidol 755 Mg/ML 100 ML Bottle IVPUSH ONE (20:54)
[2016-11-23] MEDS ORDERED: Iopamidol 755 MG/ML 50 ML Bottle IVPUSH ONE (20:54)
[2016-11-23] MEDS ORDERED: Sodium Chloride 0.9% 100 ML IV SCH (21:00)
[2016-11-23] MEDS ORDERED: HYDROmorphone 0.5 MG/0.5 ML Syringe IVPUSH ONE (21:46)
[2016-11-23] MEDS ORDERED: Cephalexin 500 MG Cap PO ONE (22:00)
--- NOTE | 2016-11-24 07:38 | CR ---
Chest: Portable view of the chest was obtained. Comparison: No previous study. Heart size and mediastinum are normal. Lungs are clear. Bony structures are grossly intact. Impression: 1. Nothing acute is identified on portable chest x-ray. Diagnostic code #1
--- NOTE | 2016-11-24 08:29 | CT ---
CT chest Technique: Multiple axial sections through the chest were obtained. Intravenous contrast was utilized. Study has been performed as a pulmonary angiogram protocol. Comparison: Previous CT chest of 11/14/16. Findings: Pulmonary arteries are not optimally opacified. No filling defects are seen within the main pulmonary arteries or within the segmental branches. Subsegmental pulmonary emboli could be missed. Mediastinum and hilar regions show no adenopathy or mass. No pericardial thickening is seen. Previous cholecystectomy is noted. Small portion of the visualized upper abdominal structures are otherwise unremarkable. Lung window settings were reviewed which show incidental dependent atelectasis. Lungs otherwise are clear. Slight ground-glass appearance seen within the lungs believed to represent incidental change from patient body habitus. Bone window settings were reviewed which appear within normal limits for the patient's age. Impression: 1. Slightly less than optimal opacification of the pulmonary arteries. No filling defects seen within the main or segmental branches to indicate pulmonary emboli. Smaller subsegmental pulmonary emboli could be missed. 2. Other incidental findings. Diagnostic code #2 I agree with preliminary report issued by [employer] ([employer] preliminary report dictated on 11/23/16, 10:48 PM Central Time)
== END 2016-11-23 22:45 | disposition home or self-care (01) ==
LOC: JD.ED 16:50
DX: I82.A12 Acute embolism and thrombosis of left axillary vein (principal); I82.A22 Chronic embolism and thrombosis of left axillary vein; S80.812A Abrasion, left lower leg, initial encounter; K21.9 Gastro-esophageal reflux disease without esophagitis; F41.9 Anxiety disorder, unspecified; F32.9 Major depressive disorder, single episode, unspecified; Z90.49 Acquired absence of other specified parts of digestive tract; Z88.6 Allergy status to analgesic agent; Z88.8 Allergy status to other drugs, medicaments and biological substances; Z79.899 Other long term (current) drug therapy; Z79.01 Long term (current) use of anticoagulants; Z87.891 Personal history of nicotine dependence; X58.XXXA Exposure to other specified factors, initial encounter
CPT/HCPCS: 36415; 71010; 71275; 80053; 84484; 85025; 85610; 93005; 93971; 96361; 96374; 96375; 96376; 99285; A9270; J1170; J2060; J7040; J7050; 99284